=== PATIENT | female | born 1940 ===

== ENCOUNTER 2018-05-17 15:42 | Inpatient (IN) | payer MEDICAID, OTHER ==
[2018-05-17] MEDS ORDERED: Sodium Chloride 0.9% 500 ML IV STA (16:05)
--- NOTE | 2018-05-17 16:14 | ED PDOC ---
HPI: Chest Pain Time Seen by Provider: 05/17/18 15:54 Chief Complaint (Nursing): Chest Pain Chief Complaint (Provider): Chest Pain History Per: Patient, Family History/Exam Limitations: no limitations Onset/Duration Of Symptoms: Days (x2) Additional Complaint(s): Patient is a 78 y/o female with history of HTN, diabetes, and Hypercholesterolemia, who presents to the ED with chest pain, onset x2 days ago. Patient's family states that the pain started on Thursday, x2 days ago, and it resolved on its own. The pain started again yesterday after she ate food at around 18:00. Patient's family also reports that this pain is similar to symptoms that she had x3 months ago. Patient reports she had associated nausea , vomiting, and diarrhea during Thursday's episode but not yesterday or today. Patient also complains of back pain that is sometimes associated with the chest pain and sometimes independent. Patient denies any abdominal pain, leg pain, or shortness of breath. She has no other complaints at this time. Past Medical History Reviewed: Historical Data, Nursing Documentation, Vital Signs Vital Signs: Last Vital Signs Temp 98.4 F 05/17/18 15:59 Pulse 105 H 05/17/18 15:59 Resp 17 05/17/18 15:59 BP 150/72 05/17/18 15:59 Pulse Ox 95 05/17/18 16:21 - Medical History PMH: Diabetes, HTN, Hypercholesterolemia Other PMH: "pre-Heart Attack" - Surgical History Other surgeries: left knee surgery - Family History Family History: States: Unknown Family Hx - Allergies Allergies/Adverse Reactions: Allergies Allergy/AdvReac Type Severity Reaction Status Date / Time No Known Allergies Allergy Verified 05/17/18 15:53 Review of Systems ROS Statement: Except As Marked, All Systems Reviewed And Found Negative Constitutional: Negative for: Fever Cardiovascular: Positive for: Chest Pain Respiratory: Negative for: Shortness of Breath Gastrointestinal: Positive for: Nausea (x2 days ago, not today), Vomiting (x2 days ago, not today), Diarrhea (x2 days ago, not today). Negative for: Abdominal Pain Musculoskeletal: Negative for: Leg Pain Physical Exam - Reviewed Nursing Documentation Reviewed: Yes Vital Signs Reviewed: Yes - Physical Exam Appears: Positive for: Uncomfortable Head Exam: Positive for: ATRAUMATIC, NORMOCEPHALIC Skin: Positive for: Normal Color, Warm, Dry Eye Exam: Positive for: EOMI, Normal appearance, PERRL Neck: Positive for: Normal, Painless ROM, Supple Cardiovascular/Chest: Positive for: Regular Rate, Rhythm. Negative for: Murmur Respiratory: Positive for: Normal Breath Sounds. Negative for: Respiratory Distress Gastrointestinal/Abdominal: Positive for: Normal Exam, Soft. Negative for: Tenderness, Distended Back: Positive for: Normal Inspection. Negative for: L CVA Tenderness, R CVA Tenderness Extremity: Negative for: Normal ROM (limited ROM in left leg due to surgery on left knee), Tenderness, Pedal Edema, Deformity Neurologic/Psych: Positive for: Alert, Oriented. Negative for: Motor/Sensory Deficits - Laboratory Results Result Diagrams: 05/17/18 16:28 Interpretation Of Abn Labs: 4.65 trop; 2069 probnp - ECG ECG: Positive for: Interpreted By Me, Viewed By Me ECG Rhythm: Positive for: Sinus Rhythm, Nonspecific Changes (no old) O2 Sat by Pulse Oximetry: 95 (RA) Pulse Ox Interpretation: Normal - Radiology X-Ray: Interpreted by Me, Viewed By Me X-Ray Interpretation: No Acute Disease - Progress ED Course And Treament: 1745: Spoke with interventional cardiology Dr. Gonzales considering the ekg and trop elevation. States not a STEMI. Treat as nstemi. Dr. Francesco martines who is contact clerk cards. 175: Spoke with Dr. Maya. Will consult. Made aware of all findings. No heparin at this time as pt. pain free and comfortable. Will order echo for tomorrow. He reviewed ekg. - Critical Care Total Time (In Min): 30 Documented Critical Care: Time excludes all time spent performint seperately billable procedures Medical Decision Making Medical Decision Making: Time: 15:55 Impression: Chest pain Initial Plan: --EKG --BNP --CMP --Troponin I --CBC w/ diff --PTT --Prothrombin time --CXR --Pepcid Scribe Attestation: Documented by Nixon Gongora acting as a scribe for Austin Stanton MD. MD Duran Attestation: All medical record entries made by the Scribe were at my direction and personally dictated by me. I have reviewed the chart and agree that the record accurately reflects my personal performance of the history, physical exam, medical decision making, and the department course for this patient. I have also personally directed, reviewed, and agree with the discharge instructions and disposition. Disposition - Clinical Impression Clinical Impression: Chest pain, NSTEMI (non-ST elevated myocardial infarction) - Patient ED Disposition Is Patient to be Admitted: Yes Counseled Patient/Family Regarding: Studies Performed, Diagnosis - Disposition Disposition Time: 17:51 Condition: FAIR - Pt Status Changed To: Hospital Disposition Of: Inpatient - Admit Certification Admit to Inpatient:: After my assessment, the patient will require hospitalization for at least two midnights. This is because of the severity of symptoms shown, intensity of services needed, and/or the medical risk in this patient being treated as an outpatient. - POA Present On Arrival: None Core Measure Indicators: Chest Pain
[2018-05-17 16:31] LABS: BASO # 0.1 K/uL (0.0-0.2); BASO % 0.7 % (0.0-2.0); EOS # 0.1 K/uL (0.0-0.7); EOS % 0.7 % (0.0-4.0); LYMPH # 2.6 K/uL (1.0-4.3); LYMPH % 26.2 % (20.0-40.0); MEAN CORPUSCULAR HGB CONC 34.9 g/dL (33.0-37.0); MEAN PLATELET VOLUME 10.1 fl (7.2-11.7); MONO # 0.4 K/uL (0.0-0.8); MONO % 3.7 % (0.0-10.0); NEUT # 6.7 K/uL (1.8-7.0); NEUT % 68.7 % (50.0-75.0); RBC 4.85 Mil/uL (3.80-5.20); RED CELL DISTRIBUTION WIDTH 14.7 % (11.5-14.5); WHITE BLOOD COUNT 9.8 K/uL (4.8-10.8)
[2018-05-17 16:45] LABS: PROTHROMBIN TIME 11.4 Seconds (9.8-13.1)
[2018-05-17 16:48] LABS: PARTIAL THROMBOPLASTIN TIME 29.7 Seconds (25.6-37.1)
[2018-05-17 17:30] LABS: ALB/GLOB RATIO 1.3 (1.0-2.1); ALBUMIN 4.2 g/dL (3.5-5.0); CALCIUM 9.1 mg/dL (8.4-10.2); TROPONIN I 4.65 ng/mL (0.00-0.120)
--- NOTE | 2018-05-17 18:54 | CP.PCM.HP ---
History of Present Illness - History of Present Illness History of Present Illness: 78 yo female with history of DM2, HLD and HTN brought by family because of left sided chest pain which started as left back pain about 6 hrs ago then radiating and getting localized in the left chest. She claimed she had the same episode 2 days ago which started at the back then getting localized in the left chest and shoulder. She denied SOB, nausea or vomiting. Patient had a cardiac event in [place] 3 yrs ago and was told that she had a mild heart attack. She was hospitalized for a week but no intervention was done. Present on Admission - Present on Admission Any Indicators Present on Admission: No History of DVT/PE: No History of Uncontrolled Diabetes: No Urinary Catheter: No Decubitus Ulcer Present: No Review of Systems - Review of Systems All systems: reviewed and no additional remarkable complaints except (aside from those mentioned above, 12 point system review were negative by me) Past Patient History - Tetanus Immunizations Tetanus Immunization: Unknown - Past Medical History & Family History Past Medical History?: Yes - Past Social History Smoking Status: Never Smoked Chewing Tobacco Use: No Cigar Use: No Alcohol: None Drugs: Denies Home Situation {Lives}: With Family - CARDIAC Hx Cardiac Disorders: Yes Hx Heart Attack: Yes (heart attack in [place] 3 yrs ago) Hx Hypercholesterolemia: Yes Hx Hypertension: Yes - PULMONARY Hx Respiratory Disorders: No - NEUROLOGICAL Hx Neurological Disorder: No - HEENT Hx HEENT Problems: No - RENAL Hx Chronic Kidney Disease: No - ENDOCRINE/METABOLIC Hx Diabetes Mellitus Type 2: Yes - HEMATOLOGICAL/ONCOLOGICAL Hx Blood Disorders: No - INTEGUMENTARY Hx Dermatological Problems: Yes Other/Comment: vitiligo - MUSCULOSKELETAL/RHEUMATOLOGICAL Hx Musculoskeletal Disorders: Yes Hx Degenerative Joint Disease: Yes (left knee) - GASTROINTESTINAL Hx Gastrointestinal Disorders: No - GENITOURINARY/GYNECOLOGICAL Hx Genitourinary Disorders: No - PSYCHIATRIC Hx Psychophysiologic Disorder: No Hx Substance Use: No - SURGICAL HISTORY Hx Surgeries: Yes Hx Section: Yes Hx Cholecystectomy: Yes Hx Orthopedic Surgery: Yes (left knee) - ANESTHESIA Hx Anesthesia: Yes Hx Anesthesia Reactions: No Meds Allergies/Adverse Reactions: Allergies Allergy/AdvReac Type Severity Reaction Status Date / Time No Known Allergies Allergy Verified 05/17/18 15:53 Physical Exam - Constitutional Appears: No Acute Distress - Head Exam Head Exam: ATRAUMATIC - Eye Exam Eye Exam: absent: Scleral icterus - ENT Exam ENT Exam: Mucous Membranes Moist - Neck Exam Neck exam: Negative for: Meningismus - Respiratory Exam Respiratory Exam: absent: Rales, Rhonchi, Wheezes, Respiratory Distress - Cardiovascular Exam Cardiovascular Exam: REGULAR RHYTHM, +S1, +S2 - GI/Abdominal Exam GI & Abdominal Exam: Soft. absent: Tenderness - Rectal Exam Rectal Exam: Deferred - Extremities Exam Extremities exam: Negative for: calf tenderness, pedal edema - Back Exam Back exam: absent: tenderness - Neurological Exam Neurological exam: Alert, Oriented x3 - Psychiatric Exam Psychiatric exam: Normal Affect - Skin Skin Exam: Dry, Intact Additional comments: depigmentation on forehead and neck and shoulders Results - Vital Signs Recent Vital Signs: Last Vital Signs Temp 98.4 F 05/17/18 15:59 Pulse 105 H 05/17/18 15:59 Resp 17 05/17/18 15:59 BP 150/72 05/17/18 15:59 Pulse Ox 95 05/17/18 17:59 - Labs Result Diagrams: 05/17/18 16:28 05/17/18 16:28 Labs: Laboratory Results - last 24 hr 05/17/18 05/17/18 05/17/18 16:28 16:28 16:28 WBC 9.8 RBC 4.85 Hgb 14.0 Hct 40.3 MCV 83.0 MCH 29.0 MCHC 34.9 RDW 14.7 H Plt Count 214 MPV 10.1 Neut % (Auto) 68.7 Lymph % (Auto) 26.2 Wilkes % (Auto) 3.7 Eos % (Auto) 0.7 Baso % (Auto) 0.7 Neut # (Auto) 6.7 Lymph # (Auto) 2.6 Wilkes # (Auto) 0.4 Eos # (Auto) 0.1 Baso # (Auto) 0.1 PT 11.4 INR 1.0 APTT 29.7 Sodium 130 L Potassium 4.4 Chloride 98 Carbon Dioxide 22 Anion Gap 14 BUN 15 Creatinine 1.1 Est GFR ( Amer) 58 Est GFR (Non-Af Amer) 48 Random Glucose 404 H* Calcium 9.1 Total Bilirubin 0.4 AST 62 H ALT 40 Alkaline Phosphatase 74 Troponin I 4.6500 H* NT-Pro-B Natriuret Pep 2070 H Total Protein 7.4 Albumin 4.2 Globulin 3.2 Albumin/Globulin Ratio 1.3 Lipase 63 Assessment & Plan - Assessment and Plan (Free Text) Assessment: 78 yo female with history of DM2, HLD and HTN brought by family because of left sided chest pain which started as left back pain about 6 hrs ago then radiating and getting localized in the left chest. She claimed she had the same episode 2 days ago which started at the back then getting localized in the left chest and shoulder. 1. NSTEMI serial Troponin NTG SL prn for chest pain Morphine 2mg IV q 4hrs prn for chest not relieved with above ECHO cardiology consult with Dr Maya called by ER Lopressor 25mg PO q 12hrs Atorvastatin 40mg PO daily 2. DM2 accuchek ACHS with low Lispro coverage diabetic diet HgA1C, BMP in am 3. HTN Lopressor 25mg PO q 12hrs 4. DVT prophylaxis Lovenox 40mg SC daily
[2018-05-17] MEDS: Insulin Lispro (humaLOG) 100 Units/ml Inj SC SCH (22:30)
[2018-05-18] MEDS: Enoxaparin 80 mg Syringe SC SCH ×3 (00:05→23:13)
[2018-05-18 05:36] LABS: BASO # 0.1 K/uL (0.0-0.2); BASO % 0.8 % (0.0-2.0); EOS # 0.2 K/uL (0.0-0.7); EOS % 1.8 % (0.0-4.0); HEMOGLOBIN 12.9 g/dL (12.0-16.0); LYMPH # 3.1 K/uL (1.0-4.3); LYMPH % 31.5 % (20.0-40.0); MEAN CELL VOLUME 83.7 fl (81.0-99.0); MEAN CORPUSCULAR HEMOGLOBIN 28.7 pg (27.0-31.0); MEAN CORPUSCULAR HGB CONC 34.3 g/dL (33.0-37.0); MEAN PLATELET VOLUME 9.7 fl (7.2-11.7); MONO # 0.6 K/uL (0.0-0.8); MONO % 5.7 % (0.0-10.0); NEUT # 5.9 K/uL (1.8-7.0); NEUT % 60.2 % (50.0-75.0); RBC 4.51 Mil/uL (3.80-5.20); RED CELL DISTRIBUTION WIDTH 14.5 % (11.5-14.5); WHITE BLOOD COUNT 9.8 K/uL (4.8-10.8)
[2018-05-18 05:47] LABS: BLOOD UREA NITROGEN 14 mg/dl (7-17); CALCIUM 8.9 mg/dL (8.4-10.2); GFR NON-AFRICAN AMERICAN 53; HDL CHOLESTEROL 25 MG/DL (30-70)
[2018-05-18 05:58] LABS: LDL CHOLESTEROL 61 mg/dL (0-129)
[2018-05-18] MEDS ORDERED: Pneumococcal 23-Valent Vaccine IM ONE (06:30)
--- NOTE | 2018-05-18 07:55 | CP.PCM.PN ---
<Aram Ortiz - Last Filed: 05/18/18 10:17> Subjective - Date & Time of Evaluation Date of Evaluation: 05/18/18 Time of Evaluation: 09:00 - Subjective Subjective: Pt is a 78 yo F brought in by her family last night due to a left sided chest pain which started in her back then radiated to her left chest after she ate a meal at 6pm. Patient has had similar episodes one on Thursday of which she also had nausea, vomiting and diarrhea the episode resolved on its own and another 3 months prior. Patient was hospitalized 3 years ago in the [facility] and was told she experienced a minor heart attack however no intervention was performed at that time. Today patient states she is feeling well this morning, denies having any chest pain, SOB, Nausea, Vomiting, or Diarrhea. Patient states she is having minor constipation. Daughter is at bedside, patient heard of hearing. Hx: HTN, DM, HLD, Vitiligo Surg Hx: Left knee Objective - Vital Signs/Intake and Output Vital Signs (last 24 hours): Temp Pulse Resp BP Pulse Ox 98.1 F 65 18 154/77 H 96 05/18/18 07:58 05/18/18 07:58 05/18/18 07:58 05/18/18 07:58 05/18/18 07:58 - Medications Medications: Current Medications Aspirin (Aspirin) 325 mg PO DAILY [facility] Atorvastatin Calcium (Lipitor) 40 mg PO HS [facility] Last Admin: 05/17/18 22:29 Dose: 40 mg Clopidogrel Bisulfate (Plavix) 75 mg PO DAILY [facility] Docusate Sodium (Colace) 100 mg PO BID PRN PRN Reason: Constipation Enoxaparin Sodium (Lovenox) 70 mg SC Q12 [facility] PRN Reason: Protocol Last Admin: 05/18/18 00:05 Dose: 70 mg Insulin Human Lispro (Humalog) 0 units SC ACHS [facility] PRN Reason: Protocol Last Admin: 05/18/18 08:18 Dose: Not Given Metoprolol Tartrate (Lopressor) 25 mg PO Q8 [facility] Last Admin: 05/18/18 03:05 Dose: 25 mg Morphine Sulfate (Morphine) 2 mg IVP Q6 PRN PRN Reason: chest pain Nitroglycerin (Nitrostat Sl Tab) 0.4 mg SL Q5M PRN PRN Reason: chest pain Pantoprazole Sodium (Protonix Ec Tab) 40 mg PO DAILY [facility] - Labs Labs: 05/18/18 04:45 05/18/18 04:45 PT 11.4 Seconds (9.8-13.1) 05/17/18 16:28 INR 1.0 05/17/18 16:28 APTT 29.7 Seconds (25.6-37.1) 05/17/18 16:28 - Constitutional Appears: Well, Non-toxic, No Acute Distress - Head Exam Head Exam: ATRAUMATIC, NORMAL INSPECTION Additional comments: Vitiligo - Eye Exam Eye Exam: EOMI, Normal appearance, PERRL - ENT Exam ENT Exam: Mucous Membranes Moist - Neck Exam Neck Exam: Full ROM, Normal Inspection - Respiratory Exam Respiratory Exam: Clear to Ausculation Bilateral, NORMAL BREATHING PATTERN - Cardiovascular Exam Cardiovascular Exam: REGULAR RHYTHM, RRR, +S1, +S2 - GI/Abdominal Exam GI & Abdominal Exam: Soft, Normal Bowel Sounds - Extremities Exam Extremities Exam: Normal Inspection - Neurological Exam Neurological Exam: Alert, Awake, Oriented x3 - Skin Additional comments: Vitiligo noted on face and shoulders Assessment and Plan (1) NSTEMI (non-ST elevated myocardial infarction) Assessment & Plan: -Serial Troponins- 4.65, now 12 -Pro BNP 2070 -Active EKG changes-Echo today -Chest pain PRN Nitro, Morphine - Plavix 300mg, Lovenox 70mg -Interventional cardiology consulted- Dr. Maya Status: Acute (2) HTN (hypertension) Assessment & Plan: BP 154/77, HR 67- continue Lopressor 25mg Q 8h Status: Acute (3) Diabetes mellitus Assessment & Plan: - Accucheck QHS- 143 - Diabetic diet -Lispro - Continue to monitor BMP Status: Acute (4) Dyslipidemia Assessment & Plan: - Atorvastatin 40mg PO daily Status: Acute (5) DVT prophylaxis Assessment & Plan: -Lovenox Status: Acute <Didi Evans - Last Filed: 05/18/18 10:49> Objective - Vital Signs/Intake and Output Vital Signs (last 24 hours): Temp Pulse Resp BP Pulse Ox 98.2 F 67 18 166/90 H 96 05/18/18 04:53 05/18/18 04:53 05/18/18 04:53 05/18/18 04:53 05/18/18 04:53 - Medications Medications: Current Medications Aspirin (Aspirin) 325 mg PO DAILY [facility] Atorvastatin Calcium (Lipitor) 40 mg PO HS [facility] Last Admin: 05/17/18 22:29 Dose: 40 mg Clopidogrel Bisulfate (Plavix) 75 mg PO DAILY [facility] Docusate Sodium (Colace) 100 mg PO BID PRN PRN Reason: Constipation Enoxaparin Sodium (Lovenox) 70 mg SC Q12 [facility] PRN Reason: Protocol Last Admin: 05/18/18 00:05 Dose: 70 mg Insulin Human Lispro (Humalog) 0 units SC ACHS [facility] PRN Reason: Protocol Last Admin: 05/17/18 22:30 Dose: Not Given Metoprolol Tartrate (Lopressor) 25 mg PO Q8 [facility] Last Admin: 05/18/18 03:05 Dose: 25 mg Morphine Sulfate (Morphine) 2 mg IVP Q6 PRN PRN Reason: chest pain Nitroglycerin (Nitrostat Sl Tab) 0.4 mg SL Q5M PRN PRN Reason: chest pain Pantoprazole Sodium (Protonix Ec Tab) 40 mg PO DAILY [facility] - Labs Labs: 05/18/18 04:45 05/18/18 04:45 PT 11.4 Seconds (9.8-13.1) 05/17/18 16:28 INR 1.0 05/17/18 16:28 APTT 29.7 Seconds (25.6-37.1) 05/17/18 16:28 <Ana Hayes - Last Filed: 05/18/18 15:45> Objective - Vital Signs/Intake and Output Vital Signs (last 24 hours): Temp Pulse Resp BP Pulse Ox 98 F 68 18 146/70 95 05/18/18 13:00 05/18/18 13:00 05/18/18 13:00 05/18/18 13:00 05/18/18 13:00 - Medications Medications: Current Medications Aspirin (Aspirin) 325 mg PO DAILY [facility] Last Admin: 05/18/18 10:13 Dose: 325 mg Atorvastatin Calcium (Lipitor) 40 mg PO HS [facility] Last Admin: 05/17/18 22:29 Dose: 40 mg Clopidogrel Bisulfate (Plavix) 75 mg PO DAILY [facility] Last Admin: 05/18/18 10:15 Dose: Not Given Docusate Sodium (Colace) 100 mg PO BID PRN PRN Reason: Constipation Enoxaparin Sodium (Lovenox) 70 mg SC Q12 [facility] PRN Reason: Protocol Last Admin: 05/18/18 10:15 Dose: 70 mg Insulin Human Lispro (Humalog) 0 units SC ACHS [facility] PRN Reason: Protocol Last Admin: 05/18/18 12:06 Dose: 1 unit Metoprolol Tartrate (Lopressor) 25 mg PO Q8 [facility] Last Admin: 05/18/18 10:14 Dose: 25 mg Morphine Sulfate (Morphine) 2 mg IVP Q6 PRN PRN Reason: chest pain Nitroglycerin (Nitrostat Sl Tab) 0.4 mg SL Q5M PRN PRN Reason: chest pain Pantoprazole Sodium (Protonix Ec Tab) 40 mg PO DAILY [facility] Last Admin: 05/18/18 10:15 Dose: 40 mg - Labs Labs: 05/18/18 04:45 05/18/18 04:45 PT 11.4 Seconds (9.8-13.1) 05/17/18 16:28 INR 1.0 05/17/18 16:28 APTT 29.7 Seconds (25.6-37.1) 05/17/18 16:28 Attending/Attestation - Attestation I have personally seen and examined this patient.: Yes I have fully participated in the care of the patient.: Yes I have reviewed all pertinent clinical information, including history, physical exam and plan: Yes Notes (Text): 05/18/18 15:45 Seen, examined, and discussed with resident. Agree with findings and plan as above.
--- NOTE | 2018-05-18 08:11 | RAD ---
Date of service: 05/17/2018 HISTORY: dyspnea COMPARISON: No prior. FINDINGS: LUNGS: No active pulmonary disease. PLEURA: No significant pleural effusion identified, no pneumothorax apparent. CARDIOVASCULAR: Normal. OSSEOUS STRUCTURES: No significant abnormalities. VISUALIZED UPPER ABDOMEN: Surgical clips are seen at the right upper quadrant abdomen. OTHER FINDINGS: None. IMPRESSION: No definite acute cardiopulmonary disease appreciable.
[2018-05-18] MEDS: Insulin Lispro (humaLOG) 100 Units/ml Inj SC SCH ×4 (08:18→23:11)
[2018-05-18] MEDS ORDERED: Enoxaparin 40 mg Syringe SC SCH (09:00)
--- NOTE | 2018-05-18 09:05 | CARD ---
APPROVED REPORT Date of service: 05/17/2018 EKG Measurement Heart [id number] MD [id number] <Conclusion> Normal sinus rhythm Possible Left atrial enlargement Septal infarct, age undetermined ST & T wave abnormality, consider lateral ischemia Abnormal ECG
--- NOTE | 2018-05-18 09:06 | CARD ---
APPROVED REPORT Date of service: 05/17/2018 EKG Measurement Heart [id number] [place] 156P50 [id number] <Conclusion> Sinus tachycardia Cannot rule out Anterior infarct, age undetermined ST & T wave abnormality, consider lateral ischemia Abnormal ECG
--- NOTE | 2018-05-18 09:41 | CARD ---
APPROVED REPORT Date of service: 05/18/2018 EKG Measurement Heart [id number] 160P57 [id number] <Conclusion> Normal sinus rhythm Septal infarct, age undetermined Abnormal ECG
[2018-05-18] MEDS: Pantoprazole 40 mg EC Tab PO SCH (10:15)
--- NOTE | 2018-05-18 14:46 | CARD ---
APPROVED REPORT Date of service: 05/18/2018 EXAM: Two-dimensional and M-mode echocardiogram with Doppler and color Doppler. Other Information Quality : GoodRhythm : NSR INDICATION Non STEMI 2D DIMENSIONS IVSd0.90 (0.7-1.1cm)LVDd4.95 (3.9-5.9cm) LVOT Diameter1.80 (1.8-2.4cm)PWd0.76 (0.7-1.1cm) IVSs0.99 (0.8-1.2cm)LVDs3.74 (2.5-4.0cm) FS (%) 24.5 %PWs1.09 (0.8-1.2cm) M-Mode DIMENSIONS Left Atrium (MM)2.99 (2.5-4.0cm)IVSd0.95 (0.7-1.1cm) Aortic Root3.19 (2.2-3.7cm)LVDd5.64 (4.0-5.6cm) Aortic Cusp Exc.2.06 (1.5-2.0cm)PWd1.08 (0.7-1.1cm) IVSs0.88 cmFS (%) 27 % LVDs4.09 (2.0-3.8cm)PWs1.47 cm Aortic Valve AoV Peak Llbdslcc535.5cm/sAoV VTI21.6cmAO Peak GR.4mmHg LVOT Peak Jseiluip04.0cm/sLVOT VTI24.91cmAO Mean GR.2mmHg Mitral Valve MV E Zmpdtmpy62.4cm/sMV DECEL [id number] A Lxkosncq71.3cm/s MV HLH50goL/A ratio0.6MVA (PHT)3.24cm2 TDI Lateral E' Peak V4.97cm/sMedial E' Peak V4.89cm/sE/Lateral E'11.8 E/Medial E'11.9 Pulmonary Valve PV Peak Pvqxdmsv21.6cm/s LEFT VENTRICLE The left ventricle is normal size. There is normal left ventricular wall thickness. The left ventricular ejection fraction is within the normal range. The Ejection Fraction is 60-65%. No regional wall motion abnormalities noted.. Transmitral Doppler flow pattern is Grade I-abnormal relaxation pattern. No left ventricle thrombus noted on this study. There is no ventricular septal defect visualized. There is no mass noted in the left ventricle. RIGHT VENTRICLE The right ventricle is normal size. There is normal right ventricular wall thickness. The right ventricular systolic function is normal. ATRIA The left atrium size is normal. The right atrium size is normal. There is a small secundum type atrial septal defect. AORTIC VALVE The aortic valve is normal in structure. No aortic regurgitation is present. There is no aortic valvular stenosis. MITRAL VALVE The mitral valve is normal in structure. There is no mitral valve stenosis. There is no mitral valve regurgitation noted. TRICUSPID VALVE The tricuspid valve is normal in structure. There is no tricuspid valve regurgitation noted. PULMONIC VALVE The pulmonary valve is normal in structure. There is no pulmonic valvular regurgitation. GREAT VESSELS The aortic root is normal in size. The ascending aorta is normal in size. The pulmonary artery is normal. The IVC is normal in size and collapses >50% with inspiration. PERICARDIAL EFFUSION There is no pericardial effusion. <Conclusion> Normal LV systolic function with doppler hemodynamics consistent with abnormal relaxation Small ASD The Ejection Fraction is 60-65%.
--- NOTE | 2018-05-18 16:48 | CP.PCM.CON ---
History of Present Illness - History of Present Illness History of Present Illness: 78 yo female with history of DM2, HLD and HTN brought by family because of left sided chest pain which started as left back pain radiating the left chest. this was her second event in 3 days. She denied SOB, nausea or vomiting. Patient had a cardiac event in [place] 3 yrs ago and was told that she had a mild heart attack. She was hospitalized for a week but no intervention was done. upon admission pts troponins were positive. echo reveals nml ef. Review of Systems - Review of Systems Systems not reviewed;Unavailable: Language Barrier Past Patient History - Tetanus Immunizations Tetanus Immunization: Unknown - Past Medical History & Family History Past Medical History?: Yes - Past Social History Smoking Status: Never Smoked - CARDIAC Hx Cardiac Disorders: Yes Hx Hypercholesterolemia: Yes Hx Hypertension: Yes - PULMONARY Hx Respiratory Disorders: No - NEUROLOGICAL Hx Neurological Disorder: No - HEENT Hx HEENT Problems: No - RENAL Hx Chronic Kidney Disease: No - ENDOCRINE/METABOLIC Hx Endocrine Disorders: Yes Hx Diabetes Mellitus Type 2: Yes - HEMATOLOGICAL/ONCOLOGICAL Hx Blood Disorders: No - INTEGUMENTARY Hx Dermatological Problems: Yes Other/Comment: vitiligo - MUSCULOSKELETAL/RHEUMATOLOGICAL Hx Musculoskeletal Disorders: No Hx Falls: No - GASTROINTESTINAL Hx Gastrointestinal Disorders: No - GENITOURINARY/GYNECOLOGICAL Hx Genitourinary Disorders: No - PSYCHIATRIC Hx Psychophysiologic Disorder: No Hx Substance Use: No - SURGICAL HISTORY Hx Surgeries: Yes Hx Section: Yes Hx Cholecystectomy: Yes Hx Orthopedic Surgery: Yes (b/l knee) - ANESTHESIA Hx Anesthesia: Yes Hx Anesthesia Reactions: No Meds Allergies/Adverse Reactions: Allergies Allergy/AdvReac Type Severity Reaction Status Date / Time No Known Allergies Allergy Verified 05/17/18 15:53 - Medications Medications: Current Medications Aspirin (Aspirin) 325 mg PO DAILY [facility] Last Admin: 05/18/18 10:13 Dose: 325 mg Atorvastatin Calcium (Lipitor) 40 mg PO HS [facility] Last Admin: 05/17/18 22:29 Dose: 40 mg Clopidogrel Bisulfate (Plavix) 75 mg PO DAILY [facility] Last Admin: 05/18/18 10:15 Dose: Not Given Docusate Sodium (Colace) 100 mg PO BID PRN PRN Reason: Constipation Enoxaparin Sodium (Lovenox) 70 mg SC Q12 [facility] PRN Reason: Protocol Last Admin: 05/18/18 10:15 Dose: 70 mg Insulin Human Lispro (Humalog) 0 units SC ACHS [facility] PRN Reason: Protocol Last Admin: 05/18/18 12:06 Dose: 1 unit Metoprolol Tartrate (Lopressor) 25 mg PO Q8 [facility] Last Admin: 05/18/18 10:14 Dose: 25 mg Morphine Sulfate (Morphine) 2 mg IVP Q6 PRN PRN Reason: chest pain Nitroglycerin (Nitrostat Sl Tab) 0.4 mg SL Q5M PRN PRN Reason: chest pain Pantoprazole Sodium (Protonix Ec Tab) 40 mg PO DAILY [facility] Last Admin: 05/18/18 10:15 Dose: 40 mg Physical Exam - Constitutional Appears: Well - Head Exam Head Exam: ATRAUMATIC, NORMAL INSPECTION, NORMOCEPHALIC - Eye Exam Eye Exam: EOMI, Normal appearance, PERRL Pupil Exam: NORMAL ACCOMODATION, PERRL - ENT Exam ENT Exam: Mucous Membranes Moist, Normal Exam - Neck Exam Neck exam: Positive for: Normal Inspection - Respiratory Exam Respiratory Exam: Clear to Auscultation Bilateral, NORMAL BREATHING PATTERN. absent: Accessory Muscle Use, Chest Wall Tenderness, Decreased Breath Sounds, Prolonged Expiratory Phase, Rales, Rhonchi, Wheezes, Respiratory Distress, Stridor - Cardiovascular Exam Cardiovascular Exam: REGULAR RHYTHM, +S1, +S2, Systolic Murmur - GI/Abdominal Exam GI & Abdominal Exam: Normal Bowel Sounds, Soft. absent: Bruit, Diminished Bowel Sounds, Distended, Firm, Guarding, Hernia, Hyperactive Bowel Sounds, Hypoactive Bowel Sounds, Mass, Organomegaly, Pulsatile Mass, Rebound, Rigid, Tenderness - Rectal Exam Rectal Exam: Deferred - Extremities Exam Extremities exam: Positive for: normal inspection - Back Exam Back exam: NORMAL INSPECTION - Neurological Exam Neurological exam: Alert, CN II-XII Intact, Normal Gait, Oriented x3, Reflexes Normal - Psychiatric Exam Psychiatric exam: Normal Affect, Normal Mood - Skin Skin Exam: Dry, Intact, Normal Color, Warm Results - Vital Signs Recent Vital Signs: Last Vital Signs Temp 98.1 F 05/18/18 16:07 Pulse 69 05/18/18 16:07 Resp 18 05/18/18 16:07 BP 156/74 H 05/18/18 16:07 Pulse Ox 98 05/18/18 16:07 - Labs Result Diagrams: 05/18/18 04:45 05/18/18 04:45 Labs: Laboratory Results - last 24 hr 05/17/18 05/17/18 05/17/18 16:28 16:28 16:28 WBC 9.8 RBC 4.85 Hgb 14.0 Hct 40.3 MCV 83.0 MCH 29.0 MCHC 34.9 RDW 14.7 H Plt Count 214 MPV 10.1 Neut % (Auto) 68.7 Lymph % (Auto) 26.2 Borden % (Auto) 3.7 Eos % (Auto) 0.7 Baso % (Auto) 0.7 Neut # (Auto) 6.7 Lymph # (Auto) 2.6 Borden # (Auto) 0.4 Eos # (Auto) 0.1 Baso # (Auto) 0.1 APTT 29.7 Sodium 130 L Potassium 4.4 Chloride 98 Carbon Dioxide 22 Anion Gap 14 BUN 15 Creatinine 1.1 Est GFR ( Amer) 58 Est GFR (Non-Af Amer) 48 POC Glucose (mg/dL) Random Glucose 404 H* Hemoglobin A1c Calcium 9.1 Total Bilirubin 0.4 AST 62 H ALT 40 Alkaline Phosphatase 74 Troponin I 4.6500 H* NT-Pro-B Natriuret Pep 2070 H Total Protein 7.4 Albumin 4.2 Globulin 3.2 Albumin/Globulin Ratio 1.3 Triglycerides Cholesterol LDL Cholesterol Direct HDL Cholesterol Lipase 63 TSH 3rd Generation 05/17/18 05/17/18 05/18/18 19:59 21:37 00:50 WBC RBC Hgb Hct MCV MCH MCHC RDW Plt Count MPV Neut % (Auto) Lymph % (Auto) Borden % (Auto) Eos % (Auto) Baso % (Auto) Neut # (Auto) Lymph # (Auto) Borden # (Auto) Eos # (Auto) Baso # (Auto) APTT Sodium Potassium Chloride Carbon Dioxide Anion Gap BUN Creatinine Est GFR ( Amer) Est GFR (Non-Af Amer) POC Glucose (mg/dL) 256 H 213 H Random Glucose Hemoglobin A1c Calcium Total Bilirubin AST ALT Alkaline Phosphatase Troponin I 12.0000 H* NT-Pro-B Natriuret Pep Total Protein Albumin Globulin Albumin/Globulin Ratio Triglycerides Cholesterol LDL Cholesterol Direct HDL Cholesterol Lipase TSH 3rd Generation 05/18/18 05/18/18 05/18/18 04:45 04:45 04:45 WBC 9.8 RBC 4.51 Hgb 12.9 Hct 37.7 MCV 83.7 MCH 28.7 MCHC 34.3 RDW 14.5 Plt Count 205 MPV 9.7 Neut % (Auto) 60.2 Lymph % (Auto) 31.5 Borden % (Auto) 5.7 Eos % (Auto) 1.8 Baso % (Auto) 0.8 Neut # (Auto) 5.9 Lymph # (Auto) 3.1 Borden # (Auto) 0.6 Eos # (Auto) 0.2 Baso # (Auto) 0.1 APTT Sodium 139 Potassium 4.1 Chloride 108 H Carbon Dioxide 23 Anion Gap 12 BUN 14 Creatinine 1.0 Est GFR ( Amer) > 60 Est GFR (Non-Af Amer) 53 POC Glucose (mg/dL) Random Glucose 143 H Hemoglobin A1c 10.6 H Calcium 8.9 Total Bilirubin AST ALT Alkaline Phosphatase Troponin I NT-Pro-B Natriuret Pep Total Protein Albumin Globulin Albumin/Globulin Ratio Triglycerides 145 Cholesterol 120 LDL Cholesterol Direct 61 HDL Cholesterol 25 L Lipase TSH 3rd Generation 4.39 05/18/18 05/18/18 05/18/18 05:28 10:07 11:00 WBC RBC Hgb Hct MCV MCH MCHC RDW Plt Count MPV Neut % (Auto) Lymph % (Auto) Borden % (Auto) Eos % (Auto) Baso % (Auto) Neut # (Auto) Lymph # (Auto) Borden # (Auto) Eos # (Auto) Baso # (Auto) APTT Sodium Potassium Chloride Carbon Dioxide Anion Gap BUN Creatinine Est GFR ( Amer) Est GFR (Non-Af Amer) POC Glucose (mg/dL) 130 H 188 H Random Glucose Hemoglobin A1c Calcium Total Bilirubin AST ALT Alkaline Phosphatase Troponin I 9.6500 H* NT-Pro-B Natriuret Pep Total Protein Albumin Globulin Albumin/Globulin Ratio Triglycerides Cholesterol LDL Cholesterol Direct HDL Cholesterol Lipase TSH 3rd Generation Assessment & Plan (1) Diabetes mellitus Status: Acute (2) Dyslipidemia Status: Acute (3) HTN (hypertension) Status: Acute (4) NSTEMI (non-ST elevated myocardial infarction) Status: Acute - Assessment and Plan (Free Text) Plan: last night pt was placed on full anticoag. bb's increased. currently no painf. cath tomorrow at [facility]. scheduled at 3pm.
--- NOTE | 2018-05-19 09:06 | CP.PCM.PN ---
<CristinaDidi - Last Filed: 05/19/18 10:02> Subjective - Date & Time of Evaluation Date of Evaluation: 05/19/18 Time of Evaluation: 09:16 - Subjective Subjective: Cyra: [id number] Pt seen at bedside this morning accompanied by daughter, hard of hearing. Pt states she is feeling well, slept well and denies any chest pain overnight. Pt is having constipation and states the last time she had a bowel movement was Thursday. Pt also is feeling weak and hasn't had the energy to get up out of bed and walk. Denies any SOB, palpations, nausea, vomiting, dysuria or diarrhea. Pt has a good appetite and able to tolerate oral intake, urinating well. Pt is scheduled for a cardiac cath today at 3pm at [facility] with Dr. Maya. Hx: HTN, DM, HLD, Vitiligo, [place] 2015 Surg Hx: Left knee Objective - Vital Signs/Intake and Output Vital Signs (last 24 hours): Temp Pulse Resp BP Pulse Ox 98 F 71 18 137/76 95 05/19/18 08:02 05/19/18 08:02 05/19/18 08:02 05/19/18 08:02 05/19/18 08:02 - Medications Medications: Current Medications Aspirin (Aspirin) 325 mg PO DAILY [facility] Last Admin: 05/18/18 10:13 Dose: 325 mg Atorvastatin Calcium (Lipitor) 40 mg PO HS [facility] Last Admin: 05/18/18 23:12 Dose: 40 mg Clopidogrel Bisulfate (Plavix) 75 mg PO DAILY [facility] Last Admin: 05/18/18 10:15 Dose: Not Given Docusate Sodium (Colace) 100 mg PO BID PRN PRN Reason: Constipation Enoxaparin Sodium (Lovenox) 70 mg SC Q12 [facility] PRN Reason: Protocol Last Admin: 05/18/18 23:13 Dose: 70 mg Insulin Human Lispro (Humalog) 0 units SC ACHS [facility] PRN Reason: Protocol Last Admin: 05/18/18 23:11 Dose: Not Given Metoprolol Tartrate (Lopressor) 25 mg PO Q8 [facility] Last Admin: 05/19/18 01:44 Dose: 25 mg Morphine Sulfate (Morphine) 2 mg IVP Q6 PRN PRN Reason: chest pain Nitroglycerin (Nitrostat Sl Tab) 0.4 mg SL Q5M PRN PRN Reason: chest pain Pantoprazole Sodium (Protonix Ec Tab) 40 mg PO DAILY [facility] Last Admin: 05/18/18 10:15 Dose: 40 mg - Labs Labs: 05/18/18 04:45 05/18/18 04:45 PT 11.4 Seconds (9.8-13.1) 05/17/18 16:28 INR 1.0 05/17/18 16:28 APTT 29.7 Seconds (25.6-37.1) 05/17/18 16:28 - Constitutional Appears: Well, Non-toxic, No Acute Distress - Head Exam Head Exam: ATRAUMATIC, NORMAL INSPECTION Additional comments: Vitiligo across forehead - Eye Exam Eye Exam: EOMI, Normal appearance, PERRL - ENT Exam ENT Exam: Mucous Membranes Moist, Normal Exam - Neck Exam Neck Exam: Full ROM, Normal Inspection - Respiratory Exam Respiratory Exam: Wheezes Additional comments: Inspiratory wheeze heard on ausculation R lower lobe - Cardiovascular Exam Cardiovascular Exam: RRR, +S1, +S2 Additional comments: Systolic murmur - GI/Abdominal Exam GI & Abdominal Exam: Normal Bowel Sounds - Extremities Exam Extremities Exam: Normal Inspection - Neurological Exam Neurological Exam: Alert, Awake, Oriented x3 - Psychiatric Exam Psychiatric exam: Normal Mood - Skin Additional comments: Vitiligo across forehead, chest Assessment and Plan (1) NSTEMI (non-ST elevated myocardial infarction) Assessment & Plan: -Pt is scheduled for cardiac cath today at 3pm at [facility]- Dr. Maya -Serial tropinins were followed 9.65 down from 12 -Echo- normal L syst fxn EF 60-65% with abnml relaxation, small ASD -Pro BNP 2069 -Active EKG ischemic changes- t wave flattening, inversion -Chest pain PRN Nitro, Morphine -Plavix 75 mg Daily, Lovenox 70mg Q12 - HR 71- Lopressor 25mg Q8 Status: Acute (2) HTN (hypertension) Assessment & Plan: BP 137/76, HR 71- continue Lopressor 25mg Q 8h Status: Acute (3) Diabetes mellitus Assessment & Plan: - Accucheck QHS- 166, Glucose 143, HgA1c 10.6 - Diabetic diet -Continue Lispro ACHS - Continue to monitor BMP Status: Acute (4) Dyslipidemia Assessment & Plan: - Atorvastatin 40mg PO daily Status: Acute (5) DVT prophylaxis Assessment & Plan: - Therapeutic Lovenox Status: Acute <Tao [place] - Last Filed: 05/19/18 12:26> Objective - Vital Signs/Intake and Output Vital Signs (last 24 hours): Temp Pulse Resp BP Pulse Ox 98 F 71 18 137/76 95 05/19/18 08:02 05/19/18 08:02 05/19/18 08:02 05/19/18 08:02 05/19/18 08:02 - Medications Medications: Current Medications Aspirin (Aspirin) 325 mg PO DAILY [facility] Last Admin: 05/19/18 10:28 Dose: 325 mg Atorvastatin Calcium (Lipitor) 40 mg PO HS [facility] Last Admin: 05/18/18 23:12 Dose: 40 mg Clopidogrel Bisulfate (Plavix) 75 mg PO DAILY [facility] Last Admin: 05/18/18 10:15 Dose: Not Given Docusate Sodium (Colace) 100 mg PO BID PRN PRN Reason: Constipation Enoxaparin Sodium (Lovenox) 70 mg SC Q12 [facility] PRN Reason: Protocol Last Admin: 05/19/18 10:26 Dose: 70 mg Insulin Human Lispro (Humalog) 0 units SC ACHS [facility] PRN Reason: Protocol Last Admin: 05/19/18 10:26 Dose: Not Given Metoprolol Tartrate (Lopressor) 25 mg PO Q8 [facility] Last Admin: 05/19/18 10:25 Dose: 25 mg Morphine Sulfate (Morphine) 2 mg IVP Q6 PRN PRN Reason: chest pain Nitroglycerin (Nitrostat Sl Tab) 0.4 mg SL Q5M PRN PRN Reason: chest pain Pantoprazole Sodium (Protonix Ec Tab) 40 mg PO DAILY [facility] Last Admin: 05/19/18 10:26 Dose: 40 mg Pregabalin (Lyrica) 75 mg PO BID [facility] Last Admin: 05/19/18 10:42 Dose: 75 mg - Labs Labs: 05/18/18 04:45 05/18/18 04:45 PT 11.4 Seconds (9.8-13.1) 05/17/18 16:28 INR 1.0 05/17/18 16:28 APTT 29.7 Seconds (25.6-37.1) 05/17/18 16:28
[2018-05-19] MEDS: Pantoprazole 40 mg EC Tab PO SCH (10:26)
[2018-05-19] MEDS: Insulin Lispro (humaLOG) 100 Units/ml Inj SC SCH ×2 (10:26→22:15)
[2018-05-19] MEDS: Enoxaparin 80 mg Syringe SC SCH ×2 (10:26→22:10)
--- NOTE | 2018-05-19 13:17 | CP.PCM.PN ---
Subjective - Date & Time of Evaluation Date of Evaluation: 05/19/18 Time of Evaluation: 17:00 - Subjective Subjective: informed consent obtained and cath performed. Objective - Vital Signs/Intake and Output Vital Signs (last 24 hours): Temp Pulse Resp BP Pulse Ox 98.6 F 64 18 123/62 94 L 05/19/18 12:26 05/19/18 12:26 05/19/18 12:26 05/19/18 12:26 05/19/18 12:26 - Medications Medications: Current Medications Aspirin (Aspirin) 325 mg PO DAILY [facility] Last Admin: 05/19/18 10:28 Dose: 325 mg Atorvastatin Calcium (Lipitor) 40 mg PO HS [facility] Last Admin: 05/18/18 23:12 Dose: 40 mg Clopidogrel Bisulfate (Plavix) 75 mg PO DAILY [facility] Last Admin: 05/18/18 10:15 Dose: Not Given Docusate Sodium (Colace) 100 mg PO BID PRN PRN Reason: Constipation Enoxaparin Sodium (Lovenox) 70 mg SC Q12 [facility] PRN Reason: Protocol Last Admin: 05/19/18 10:26 Dose: 70 mg Insulin Human Lispro (Humalog) 0 units SC ACHS [facility] PRN Reason: Protocol Last Admin: 05/19/18 10:26 Dose: Not Given Metoprolol Tartrate (Lopressor) 25 mg PO Q8 [facility] Last Admin: 05/19/18 10:25 Dose: 25 mg Morphine Sulfate (Morphine) 2 mg IVP Q6 PRN PRN Reason: chest pain Nitroglycerin (Nitrostat Sl Tab) 0.4 mg SL Q5M PRN PRN Reason: chest pain Pantoprazole Sodium (Protonix Ec Tab) 40 mg PO DAILY [facility] Last Admin: 05/19/18 10:26 Dose: 40 mg Pregabalin (Lyrica) 75 mg PO BID [facility] Last Admin: 05/19/18 10:42 Dose: 75 mg - Labs Labs: 05/18/18 04:45 05/18/18 04:45 PT 11.4 Seconds (9.8-13.1) 05/17/18 16:28 INR 1.0 05/17/18 16:28 APTT 29.7 Seconds (25.6-37.1) 05/17/18 16:28 - Constitutional Appears: Well - Head Exam Head Exam: ATRAUMATIC, NORMAL INSPECTION, NORMOCEPHALIC - Eye Exam Eye Exam: EOMI, Normal appearance, PERRL Pupil Exam: NORMAL ACCOMODATION, PERRL - ENT Exam ENT Exam: Mucous Membranes Moist, Normal Exam - Neck Exam Neck Exam: Full ROM, Normal Inspection. absent: Lymphadenopathy - Respiratory Exam Respiratory Exam: Clear to Ausculation Bilateral, NORMAL BREATHING PATTERN - Cardiovascular Exam Cardiovascular Exam: REGULAR RHYTHM, +S1, +S2, Murmur - GI/Abdominal Exam GI & Abdominal Exam: Soft, Normal Bowel Sounds. absent: Bruit, Distended, Firm , Guarding, Rigid, Tenderness, Diminished Bowel Sounds, Hernia, Hyperactive Bowel Sounds, Hypoactive Bowel Sounds, Organomegaly, Pulsatile Mass, Rebound, Mass - Rectal Exam Rectal Exam: Deferred - Extremities Exam Extremities Exam: Full ROM, Normal Capillary Refill, Normal Inspection. absent : Joint Swelling, Pedal Edema - Back Exam Back Exam: NORMAL INSPECTION - Neurological Exam Neurological Exam: Alert, Awake, CN II-XII Intact, Normal Gait, Oriented x3 - Psychiatric Exam Psychiatric exam: Normal Affect, Normal Mood - Skin Skin Exam: Dry, Intact, Normal Color, Warm Assessment and Plan (1) Diabetes mellitus Status: Acute (2) Dyslipidemia Status: Acute (3) HTN (hypertension) Status: Acute (4) NSTEMI (non-ST elevated myocardial infarction) Status: Acute - Assessment and Plan (Free Text) Plan: 99 % proximal D1 lesion. for pci tomorrow.
[2018-05-20 06:05] LABS: HEMOGLOBIN 12.7 g/dL (12.0-16.0); MEAN CELL VOLUME 83.3 fl (81.0-99.0); MEAN CORPUSCULAR HEMOGLOBIN 28.4 pg (27.0-31.0); MEAN CORPUSCULAR HGB CONC 34.1 g/dL (33.0-37.0); RBC 4.46 Mil/uL (3.80-5.20); RED CELL DISTRIBUTION WIDTH 14.1 % (11.5-14.5); WHITE BLOOD COUNT 8.6 K/uL (4.8-10.8)
[2018-05-20 06:53] LABS: BLOOD UREA NITROGEN 18 mg/dl (7-17); CALCIUM 9.1 mg/dL (8.4-10.2); GFR NON-AFRICAN AMERICAN 53
--- NOTE | 2018-05-20 07:44 | CP.PCM.PN ---
Subjective - Date & Time of Evaluation Date of Evaluation: 05/20/18 Time of Evaluation: 08:00 - Subjective Subjective: Cyra: [id number] Pt seen at bedside this morning accompanied by daughter, hard of hearing. Pt states she is feeling well, slept well and denies any chest pain overnight. Pt is still having constipation last bowel movement was Thursday, no urinary symptoms. Patient had a cardiac cath done yesterday at [facility] which showed 99% proximal D1 lesion, for PCI today at [facility]. Denies any SOB , palpations, nausea, vomiting, or dysuria. Pt NPO for procedure. Hx: HTN, DM, HLD, Vitiligo, [place] 2015 Surg Hx: Left knee Objective - Vital Signs/Intake and Output Vital Signs (last 24 hours): Temp Pulse Resp BP Pulse Ox 98.7 F 68 18 169/73 H 97 05/20/18 05:19 05/20/18 05:19 05/20/18 05:19 05/20/18 05:19 05/20/18 05:19 - Medications Medications: Current Medications Aspirin (Aspirin) 325 mg PO DAILY [facility] Last Admin: 05/19/18 10:28 Dose: 325 mg Atorvastatin Calcium (Lipitor) 40 mg PO HS [facility] Last Admin: 05/19/18 22:11 Dose: 40 mg Clopidogrel Bisulfate (Plavix) 75 mg PO DAILY [facility] Last Admin: 05/18/18 10:15 Dose: Not Given Docusate Sodium (Colace) 100 mg PO BID PRN PRN Reason: Constipation Enoxaparin Sodium (Lovenox) 70 mg SC Q12 [facility] PRN Reason: Protocol Last Admin: 05/19/18 22:10 Dose: 70 mg Insulin Human Lispro (Humalog) 0 units SC ACHS [facility] PRN Reason: Protocol Last Admin: 05/19/18 22:15 Dose: Not Given Metoprolol Tartrate (Lopressor) 25 mg PO Q8 [facility] Last Admin: 05/20/18 00:55 Dose: 25 mg Morphine Sulfate (Morphine) 2 mg IVP Q6 PRN PRN Reason: chest pain Nitroglycerin (Nitrostat Sl Tab) 0.4 mg SL Q5M PRN PRN Reason: chest pain Pantoprazole Sodium (Protonix Ec Tab) 40 mg PO DAILY [facility] Last Admin: 05/19/18 10:26 Dose: 40 mg Pregabalin (Lyrica) 75 mg PO BID [facility] Last Admin: 05/19/18 10:42 Dose: 75 mg - Labs Labs: 05/20/18 04:45 05/20/18 04:45 PT 11.4 Seconds (9.8-13.1) 05/17/18 16:28 INR 1.0 05/17/18 16:28 APTT 29.7 Seconds (25.6-37.1) 05/17/18 16:28 - Constitutional Appears: Well, Non-toxic, No Acute Distress - Head Exam Head Exam: ATRAUMATIC, NORMAL INSPECTION, NORMOCEPHALIC Additional comments: Vitiligo across [place] - Eye Exam Eye Exam: EOMI, Normal appearance, PERRL - ENT Exam ENT Exam: Mucous Membranes Moist - Respiratory Exam Respiratory Exam: Clear to Ausculation Bilateral, NORMAL BREATHING PATTERN - Cardiovascular Exam Cardiovascular Exam: RRR, +S1, +S2 - GI/Abdominal Exam GI & Abdominal Exam: Normal Bowel Sounds - Extremities Exam Extremities Exam: Normal Inspection - Neurological Exam Neurological Exam: Alert, Awake, Oriented x3 Assessment and Plan (1) NSTEMI (non-ST elevated myocardial infarction) Assessment & Plan: -S/p cardiac cath yest- showed 99% proximal lesion of D1, scheduled for PCI today at [facility] [place] -Echo- normal L syst fxn EF 60-65% with abnml relaxation, small ASD -Active EKG ischemic changes- t wave flattening, inversion -Lovenox 70mg Q12 -HR 93- Lopressor 25mg Q8 Status: Acute (2) HTN (hypertension) Assessment & Plan: -BP 165/79, HR 93- continue Lopressor 25mg Q8 Status: Acute (3) Diabetes mellitus Assessment & Plan: -Accucheck QHS-136, Glucose 148, HgA1c 10.6 -Diabetic diet -Continue Lispro ACHS as needed -Continue to monitor BMP Status: Acute (4) Dyslipidemia Assessment & Plan: - Atorvastatin 40mg PO daily Status: Acute (5) DVT prophylaxis Assessment & Plan: - Therapeutic Lovenox Status: Acute
[2018-05-20] MEDS: Insulin Lispro (humaLOG) 100 Units/ml Inj SC SCH ×2 (08:13→21:50)
[2018-05-20] MEDS: Pantoprazole 40 mg EC Tab PO SCH (08:21)
[2018-05-20] MEDS: Enoxaparin 80 mg Syringe SC SCH ×2 (08:57→21:52)
[2018-05-21] MEDS: Insulin Lispro (humaLOG) 100 Units/ml Inj SC SCH ×2 (06:47→12:58)
[2018-05-21 08:38] VITALS: O2SAT 93
[2018-05-21] MEDS ORDERED: INSULIN GLARGINE HUM REC ANLOG 40 UNIT SC SCH (09:00)
[2018-05-21] MEDS: Enoxaparin 80 mg Syringe SC SCH (09:29)
[2018-05-21] MEDS: Pantoprazole 40 mg EC Tab PO SCH (09:30)
--- NOTE | 2018-05-21 10:28 | CP.PCM.PN ---
Subjective - Date & Time of Evaluation Date of Evaluation: 05/21/18 Time of Evaluation: 09:00 - Subjective Subjective: Cyra: [id number] Patient seen at bedside this morning, states that she is in pain, she had a PCI procedure done at [facility] yesterday. Patient has a large hematoma located at the right femoral entry point, bandage clean, dry and intact. Left femoral entry point bandage clean, dry, intact, no hematoma noted. The patient also states she has right arm pain after the saline IV infiltrated and venipuncture was unsuccessful, a notable hematoma lump is formed in the antecubital fossa. Patient denies chest pain, SOB, nausea, vomitting, diarrhea or constipation. Objective - Vital Signs/Intake and Output Vital Signs (last 24 hours): Temp Pulse Resp BP Pulse Ox 98.7 F 93 H 18 146/76 93 L 05/21/18 08:37 05/21/18 09:28 05/21/18 08:37 05/21/18 09:28 05/21/18 08:37 - Medications Medications: Current Medications Acetaminophen (Tylenol 325mg Tab) 650 mg PO Q6 PRN PRN Reason: Pain, Mild (1-3) Last Admin: 05/21/18 10:25 Dose: 650 mg Aspirin (Aspirin) 325 mg PO DAILY [facility] Last Admin: 05/21/18 09:35 Dose: 325 mg Atorvastatin Calcium (Lipitor) 80 mg PO HS [facility] Last Admin: 05/20/18 21:51 Dose: 80 mg Clopidogrel Bisulfate (Plavix) 75 mg PO DAILY [facility] Last Admin: 05/21/18 09:30 Dose: 75 mg Docusate Sodium (Colace) 100 mg PO BID PRN PRN Reason: Constipation Enalapril Maleate (Vasotec) 5 mg PO DAILY [facility] Last Admin: 05/21/18 09:35 Dose: 5 mg Enoxaparin Sodium (Lovenox) 70 mg SC Q12 [place] PRN Reason: Protocol Last Admin: 05/21/18 09:29 Dose: 70 mg Home Med (Insulin Glargine,Hum.Rec.Maloulog [Libby Hunter]) 40 unit SC DAILY [facility] Insulin Human Lispro (Humalog) 0 units SC ACHS [facility] PRN Reason: Protocol Last Admin: 05/21/18 06:47 Dose: 1 unit Metoprolol Tartrate (Lopressor) 25 mg PO Q8 [facility] Last Admin: 05/21/18 09:28 Dose: 25 mg Morphine Sulfate (Morphine) 2 mg IVP Q6 PRN PRN Reason: chest pain Nitroglycerin (Nitrostat Sl Tab) 0.4 mg SL Q5M PRN PRN Reason: chest pain Pantoprazole Sodium (Protonix Ec Tab) 40 mg PO DAILY [facility] Last Admin: 05/21/18 09:30 Dose: 40 mg Pregabalin (Lyrica) 75 mg PO BID [facility] Last Admin: 05/21/18 10:25 Dose: 75 mg - Labs Labs: 05/20/18 04:45 05/20/18 04:45 PT 11.4 Seconds (9.8-13.1) 05/17/18 16:28 INR 1.0 05/17/18 16:28 APTT 29.7 Seconds (25.6-37.1) 05/17/18 16:28 - Constitutional Appears: Well, Non-toxic, No Acute Distress - Head Exam Head Exam: ATRAUMATIC, NORMAL INSPECTION, NORMOCEPHALIC - Eye Exam Eye Exam: EOMI, Normal appearance, PERRL - ENT Exam ENT Exam: Mucous Membranes Moist - Neck Exam Neck Exam: Full ROM - Respiratory Exam Respiratory Exam: Clear to Ausculation Bilateral, NORMAL BREATHING PATTERN - Cardiovascular Exam Cardiovascular Exam: RRR, +S1, +S2 - GI/Abdominal Exam GI & Abdominal Exam: Soft, Normal Bowel Sounds - Extremities Exam Additional comments: R antecubital fossa- visible hematoma lump noted, R femoral entry point- large bruise like hematoma- bandage clean, dry and intat, L femoral entry point- no hematoma noted, bandage clean, dry and intact. Assessment and Plan (1) NSTEMI (non-ST elevated myocardial infarction) Assessment & Plan: -S/p Cardiac PCI intervention at [facility] after cath done at [facility], [place] showed 99% proximal lesion of D1 -Patient has R arm and R femoral hematoma- Continue to monitor patient symptoms and CBC for signs of uncontrolled bleeding -Continue Lovenox 70mg Q12, Lopressor 25mg Q8, Atorvastatin 80mg QHS, ASA 325 Daily, Enalapril 5mg Daily -Echo- normal L syst fxn EF 60-65% with abnml relaxation, small ASD, Abnormal EKG -PT eval today possible D/C Status: Acute (2) HTN (hypertension) Assessment & Plan: -BP 161/71 this AM , HR 93 -Started Enalapril 5mg QD -Continue Lopressor 25mg Q8 Status: Acute (3) Diabetes mellitus Assessment & Plan: -Accucheck QHS-182, Glucose 148, HgA1c 10.6 -Diabetic diet -Continue Lispro ACHS, Started back on Glargine 40units SC -Continue to monitor BMP Status: Acute (4) Dyslipidemia Assessment & Plan: -Atorvastatin 80mg PO QHS Status: Acute (5) DVT prophylaxis Assessment & Plan: -Therapeutic Lovenox Status: Acute
--- NOTE | 2018-05-21 12:19 | CP.PCM.DIS ---
Provider - Provider Date of Admission: 05/17/18 17:50 Attending physician: Roberto Lockwood MD Consults: Dr. Maya- Interventional Cardiology Time Spent in preparation of Discharge (in minutes): 15 Diagnosis - Discharge Diagnosis (1) NSTEMI (non-ST elevated myocardial infarction) Status: Acute Comment: -S/p Cardiac PCI intervention at [facility] after cath done at [facility] [place] showed 99% proximal lesion of D1. -Patient has R arm and R femoral hematoma- Continue to monitor patient symptoms and CBC for signs of uncontrolled bleeding. - Continue Lovenox 70mg Q12, Lopressor 25mg Q8, Atorvastatin 80mg QHS, ASA 325 Daily, Enalapril 5mg Daily. -Echo- normal L syst fxn EF 60-65% with abnml relaxation, small ASD, Abnormal EKG. -PT evaluated patient today ok to D/C (2) HTN (hypertension) Status: Acute Comment: -Started Enalapril 5mg QD. -Continue Lopressor 25mg Q8 (3) Diabetes mellitus Status: Acute Comment: -Diabetic diet. -Continue Lispro ACHS, Started back on Glargine 40units SC (4) Dyslipidemia Status: Acute Comment: -Atorvastatin 80mg PO QHS Hospital Course - Lab Results Lab Results: Most Recent Lab Values WBC 8.6 K/uL (4.8-10.8) 05/20/18 04:45 RBC 4.46 Mil/uL (3.80-5.20) 05/20/18 04:45 Hgb 12.7 g/dL (12.0-16.0) 05/20/18 04:45 Hct 37.1 % (34.0-47.0) 05/20/18 04:45 MCV 83.3 fl (81.0-99.0) 05/20/18 04:45 MCH 28.4 pg (27.0-31.0) 05/20/18 04:45 MCHC 34.1 g/dL (33.0-37.0) 05/20/18 04:45 RDW 14.1 % (11.5-14.5) 05/20/18 04:45 Plt Count 213 K/uL (130-400) 05/20/18 04:45 MPV 9.7 fl (7.2-11.7) 05/18/18 04:45 Neut % (Auto) 60.2 % (50.0-75.0) 05/18/18 04:45 Lymph % (Auto) 31.5 % (20.0-40.0) 05/18/18 04:45 Gaines % (Auto) 5.7 % (0.0-10.0) 05/18/18 04:45 Eos % (Auto) 1.8 % (0.0-4.0) 05/18/18 04:45 Baso % (Auto) 0.8 % (0.0-2.0) 05/18/18 04:45 Neut # (Auto) 5.9 K/uL (1.8-7.0) 05/18/18 04:45 Lymph # (Auto) 3.1 K/uL (1.0-4.3) 05/18/18 04:45 Gaines # (Auto) 0.6 K/uL (0.0-0.8) 05/18/18 04:45 Eos # (Auto) 0.2 K/uL (0.0-0.7) 05/18/18 04:45 Baso # (Auto) 0.1 K/uL (0.0-0.2) 05/18/18 04:45 PT 11.4 Seconds (9.8-13.1) 05/17/18 16:28 INR 1.0 05/17/18 16:28 APTT 29.7 Seconds (25.6-37.1) 05/17/18 16:28 Sodium 136 mmol/l (132-148) 05/20/18 04:45 Potassium 3.9 MMOL/L (3.6-5.0) 05/20/18 04:45 Chloride 107 mmol/L (98-107) 05/20/18 04:45 Carbon Dioxide 21 mmol/L (22-30) L 05/20/18 04:45 Anion Gap 12 (10-20) 05/20/18 04:45 BUN 18 mg/dl (7-17) H 05/20/18 04:45 Creatinine 1.0 mg/dl (0.7-1.2) 05/20/18 04:45 Est GFR ( Amer) > 60 05/20/18 04:45 Est GFR (Non-Af Amer) 53 05/20/18 04:45 POC Glucose (mg/dL) 193 mg/dL (65-110) H 05/21/18 11:50 Random Glucose 148 mg/dL (65-105) H 05/20/18 04:45 Hemoglobin A1c 10.6 % (4.2-6.5) H 05/18/18 04:45 Calcium 9.1 mg/dL (8.4-10.2) 05/20/18 04:45 Total Bilirubin 0.4 mg/dl (0.2-1.3) 05/17/18 16:28 AST 62 U/L (14-36) H 05/17/18 16:28 ALT 40 U/L (9-52) 05/17/18 16:28 Alkaline Phosphatase 74 U/L (38-126) 05/17/18 16:28 Troponin I 9.6500 ng/mL (0.00-0.120) H* 05/18/18 10:07 NT-Pro-B Natriuret Pep 2070 pg/ml (0-900) H 05/17/18 16:28 Total Protein 7.4 G/DL (6.3-8.2) 05/17/18 16:28 Albumin 4.2 g/dL (3.5-5.0) 05/17/18 16:28 Globulin 3.2 gm/dL (2.2-3.9) 05/17/18 16:28 Albumin/Globulin Ratio 1.3 (1.0-2.1) 05/17/18 16:28 Triglycerides 145 mg/DL (0-149) 05/18/18 04:45 Cholesterol 120 mg/dL (0-199) 05/18/18 04:45 LDL Cholesterol Direct 61 mg/dL (0-129) 05/18/18 04:45 HDL Cholesterol 25 MG/DL (30-70) L 05/18/18 04:45 Lipase 63 U/L (23-300) 05/17/18 16:28 TSH 3rd Generation 4.39 mIU/ML (0.46-4.68) 05/18/18 04:45 - Hospital Course Hospital Course: Pt is a 78 yo F brought in by her family on 05/17 due to left sided chest pain which started in her back then radiated to her left chest after she ate a meal at 6pm. Patient stated she had similar episode before one on Thursday of which she also had nausea, vomiting and diarrhea the episode resolved on its own and another episode 3 months prior. Patient was hospitalized 3 years ago in the [place] and was told she experienced a minor heart attack however no intervention was performed at that time. EKG was done which showed abnormal acute changes- ischemic signs, t wave inversion. Serial troponin trend 4.62, 12 , 9.65, Pro-BNP 2070, Echo-(60-65% normal L systolic fxn, abnml relaxation small ASD), Interventional cardiology Dr. Maya was consulted performed a cath at [facility], [place] which showed 99% proximal D1 lesion. Patient went to [facility] for PCI yesterday, this morning patient had a hematoma located at the right femoral entry point, bandage clean, dry and intact. Left femoral entry point bandage clean, dry, intact, no hematoma noted. Patient denies chest pain, SOB, nausea, vomiting, diarrhea or constipation. Hx: HTN, DM2, HLD, Vitiligo, [place]- 2014, hearing impairment Surg Hx: Left knee - Date & Time of H&P Date of H&P: 05/17/18 Time of H&P: 18:46 Discharge Exam - Head Exam Head Exam: ATRAUMATIC, NORMAL INSPECTION, NORMOCEPHALIC Additional comments: Vitiligo across forehead and shoulders - Eye Exam Eye Exam: EOMI, Normal appearance, PERRL - ENT Exam ENT Exam: Mucous Membranes Moist - Neck Exam Neck exam: Full Rom - Respiratory Exam Respiratory Exam: Clear to PA & Lateral, NORMAL BREATHING PATTERN, UNREMARKABLE - Cardiovascular Exam Cardiovascular Exam: RRR, +S1, +S2 - GI/Abdominal Exam GI & Abdominal Exam: Normal Bowel Sounds - Extremities Exam Additional comments: R femoral entry point- large bruise like hematoma- bandage clean, dry and intat , L femoral entry point- no hematoma noted, bandage clean, dry and intact. - Skin Additional comments: Vitiligo across forehead/shoulders Discharge Plan - Discharge Medications Prescriptions: Aspirin [Ecotrin] 81 mg PO DAILY #30 tabec Atorvastatin [Lipitor] 80 mg PO HS #30 tab Clopidogrel [Plavix] 75 mg PO DAILY #30 tab Enalapril Maleate [Vasotec] 5 mg PO DAILY #30 tab Metoprolol Tartrate [Lopressor] 25 mg PO Q8 #90 tab - Follow Up Plan Condition: STABLE Disposition: HOME/ ROUTINE Patient education suggested?: Yes Instructions: Diabetes Exchange Diet, High Blood Pressure (DC), Carbohydrate Counting Diet, Heart Attack (DC), Diabetes Diet , Chest Pain (DC), Diabetes Type 2 (DC), Diabetic Meal Planning Additional Instructions: follow up with in 1 week follow up with dr ramirez in 1 week Referrals: [facility] [Outside] Tara Maya MD [Staff Provider] - Mariusz Ramirez MD [Staff Provider] -
[2018-05-21 13:25] VITALS: BP 131/69; PULSE 78; RESP 20; TEMP 97.7
== END 2018-05-21 14:45 | disposition home or self-care (01) | DRG 122 ==
LOC: H.ER 15:42 → H.ERHOLD 17:50 → H.TEL 21:40
PROC: 3E0234Z Introduction of Serum, Toxoid and Vaccine into Muscle, Percutaneous Approach (ICD-10-PCS; 2018-05-18)
PROC: 4A023N7 Measurement of Cardiac Sampling and Pressure, Left Heart, Percutaneous Approach (ICD-10-PCS; principal; 2018-05-19)
PROC: B206YZZ Plain Radiography of Right and Left Heart using Other Contrast (ICD-10-PCS; 2018-05-19)
DX: I21.4 Non-ST elevation (NSTEMI) myocardial infarction (principal); I10 Essential (primary) hypertension; E78.00 Pure hypercholesterolemia, unspecified; E78.5 Hyperlipidemia, unspecified; E11.9 Type 2 diabetes mellitus without complications; L80 Vitiligo; Q21.1 Atrial septal defect; K59.00 Constipation, unspecified; M19.90 Unspecified osteoarthritis, unspecified site; Z23 Encounter for immunization; Z79.82 Long term (current) use of aspirin; Z79.899 Other long term (current) drug therapy

== ENCOUNTER 2018-05-26 15:26 | Emergency (ER) | payer SELFPAY ==
[2018-05-26 15:26] VITALS: BMI 29.2
[2018-05-26 15:38] VITALS: BP 156/81; PULSE 101; RESP 20; TEMP 98.4; O2SAT 96
--- NOTE | 2018-05-26 16:32 | ED PDOC ---
HPI: Male Pain Time Seen by Provider: 05/26/18 15:43 Chief Complaint (Nursing): Groin Pain Chief Complaint (Provider): Right groin swelling History Per: Patient History/Exam Limitations: no limitations Onset/Duration Of Symptoms: Days (May 19) Current Symptoms Are (Timing): Still Present Associated Symptoms: denies: Chest Pain Past Medical History Vital Signs: Last Vital Signs Temp 98.4 F 05/26/18 15:34 Pulse 101 H 05/26/18 15:34 Resp 20 05/26/18 15:34 BP 156/81 H 05/26/18 15:34 Pulse Ox 96 05/26/18 15:34 - Medical History PMH: Diabetes, HTN, Hypercholesterolemia Denies: Chronic Kidney Disease - Surgical History Surgical History: Cholecystectomy - Family History Family History: States: Unknown Family Hx - Home Medications Home Medications: Ambulatory Orders Medication Instructions Recorded Insulin Glargine,Hum.rec.anlog 40 unit SC DAILY 05/17/18 [Toujeo Solostar] Insulin Glulisine [Apidra] 10 unit SC DAILY PRN 05/17/18 Lercanidipine Hydrochloride 20 mg PO DAILY 05/17/18 Pregabalin [Lyrica] 75 mg PO Q12 05/17/18 Aspirin [Ecotrin] 81 mg PO DAILY #30 tabec 05/21/18 Atorvastatin [Lipitor] 80 mg PO HS #30 tab 05/21/18 Clopidogrel [Plavix] 75 mg PO DAILY #30 tab 05/21/18 Enalapril Maleate [Vasotec] 5 mg PO DAILY #30 tab 05/21/18 Metoprolol Tartrate [Lopressor] 25 mg PO Q8 #90 tab 05/21/18 - Allergies Allergies/Adverse Reactions: Allergies Allergy/AdvReac Type Severity Reaction Status Date / Time No Known Allergies Allergy Verified 05/26/18 15:33 - ECG O2 Sat by Pulse Oximetry: 96 Disposition - Disposition
--- NOTE | 2018-05-26 16:38 | ED PDOC ---
HPI: Female Pain Time Seen by Provider: 05/26/18 15:43 Chief Complaint (Nursing): Groin Pain Chief Complaint (Provider): Right groin swelling History Per: Patient History/Exam Limitations: no limitations Onset/Duration Of Symptoms: Days (May 19) Current Symptoms Are (Timing): Still Present Associated Symptoms: denies: Chest Pain Additional Complaint(s): Magalis Salazar is a 78 year old female, with a past medical history of HTN, hypercholesterolemia, diabetes and x2 catheters, who presents to the emergency department for right groin swelling. Patient is s/p cardiac catheter on the , performed at [facility], and catheter with PCI on the , performed at [facility]. She went to see her PMD today for check up and reevaluation. There was concern for persistent large swelling and hematoma to right groin and was sent here for further evaluation. Patient reports pain but feels like it's getting better since procedure. She denies any trauma, chest pain, shortness of breath, leg swelling, numbness or weakness in distal legs. No further medical complaints. PMD: Clinic. Past Medical History Reviewed: Historical Data, Nursing Documentation, Vital Signs Vital Signs: Last Vital Signs Temp 98.4 F 05/26/18 15:34 Pulse 101 H 05/26/18 15:34 Resp 20 05/26/18 15:34 BP 156/81 H 05/26/18 15:34 Pulse Ox 96 05/26/18 15:34 - Medical History PMH: Diabetes, HTN, Hypercholesterolemia Denies: Chronic Kidney Disease - Surgical History Surgical History: Cholecystectomy Other surgeries: x2 catheters - Family History Family History: States: Unknown Family Hx - Home Medications Home Medications: Ambulatory Orders Medication Instructions Recorded Insulin Glargine,Hum.rec.anlog 40 unit SC DAILY 05/17/18 [Toujeo Solostar] Insulin Glulisine [Apidra] 10 unit SC DAILY PRN 05/17/18 Lercanidipine Hydrochloride 20 mg PO DAILY 05/17/18 Pregabalin [Lyrica] 75 mg PO Q12 05/17/18 Aspirin [Ecotrin] 81 mg PO DAILY #30 tabec 05/21/18 Atorvastatin [Lipitor] 80 mg PO HS #30 tab 05/21/18 Clopidogrel [Plavix] 75 mg PO DAILY #30 tab 05/21/18 Enalapril Maleate [Vasotec] 5 mg PO DAILY #30 tab 05/21/18 Metoprolol Tartrate [Lopressor] 25 mg PO Q8 #90 tab 05/21/18 - Allergies Allergies/Adverse Reactions: Allergies Allergy/AdvReac Type Severity Reaction Status Date / Time No Known Allergies Allergy Verified 05/26/18 15:33 Review of Systems ROS Statement: Except As Marked, All Systems Reviewed And Found Negative Cardiovascular: Negative for: Chest Pain, Edema Respiratory: Negative for: Shortness of Breath Genitourinary Female: Positive for: Other (right groin swelling) Neurological: Negative for: Weakness, Numbness (distal legs) Physical Exam - Reviewed Nursing Documentation Reviewed: Yes Vital Signs Reviewed: Yes - Physical Exam Appears: Positive for: Well, No Acute Distress Head Exam: Positive for: ATRAUMATIC, NORMAL INSPECTION, NORMOCEPHALIC Skin: Positive for: Normal Color, Warm, Dry Eye Exam: Positive for: Normal appearance, EOMI, PERRL Neck: Positive for: Painless ROM Cardiovascular/Chest: Positive for: Edema (Trace pedal edema bilaterally. Strong pedal pulses), Tachycardia (with regular rhythm) Respiratory: Positive for: Normal Breath Sounds. Negative for: Respiratory Distress Gastrointestinal/Abdominal: Positive for: Normal Exam, Soft, Other (Lower abdomen has areas of ecchymosis consistent with subcutaneous injection. ). Negative for: Tenderness Pelvic Exam: Positive for: Other (Large bilateral groin hematoma with induration , right side greater than left side with minimal tenderness to palpation at sites but no erythema and no bruits) Extremity: Positive for: Normal ROM (upper and lower extremities). Negative for : Deformity Neurologic/Psych: Positive for: Alert, Oriented - ECG O2 Sat by Pulse Oximetry: 96 (RA) Pulse Ox Interpretation: Normal Medical Decision Making Medical Decision Making: Time: 15:43 Initial Impression: Groin hematoma r/o aneurysm Initial Plan: --Duplex Lower Extremity Artr Right [US] --Duplex Lower Extremity Vein Right [US] --Reevaluation Accession No. : [id number] Patient Name / ID : CINDI DUDLEY / [id number] Exam Date : 05/26/2018 16:22:52 ( Approved ) Study Comment : Sex / Age : F / 78Y Creator : Vicente Douglas MD Dictator : Vicente Douglas MD Training And Development Assistant : Instructional Systems Specialist : Vicente Douglas MD Approver2 : Report Date : 05/26/2018 17:50:18 My Comment : Date of service: 05/26/2018 PROCEDURE: Duplex ultrasound of the right lower extremity arteries. HISTORY: Right lower extremity swelling status post catheterization COMPARISON: None available. TECHNIQUE: Grayscale and duplex Doppler evaluation of the right common femoral, superficial femoral, popliteal, posterior tibial and dorsalis pedis arteries was performed. FINDINGS: RIGHT LOWER EXTREMITY: RIGHT COMMON FEMORAL ARTERY: Widely patent. Maximal flow velocity of 136.5 cm/s. RIGHT SUPERFICIAL FEMORAL ARTERY: * Proximal: Widely patent. Maximal flow velocity of 103.5 cm/s. * Mid: Widely patent. Maximal flow velocity of 119.3 cm/s. * Distal: Widely patent. Maximal flow velocity of 115.4 cm/s. RIGHT POPLITEAL ARTERY: Widely patent. Maximal flow velocity of 89.6 cm/s. RIGHT ANTERIOR TIBIAL ARTERY: Widely patent. Maximal flow velocity of 53.0 cm/ s. RIGHT POSTERIOR TIBIAL ARTERY: Widely patent. Maximal flow velocity of 21.1 cm/ s. Monophasic flow. RIGHT DORSALIS PEDIS ARTERY: Widely patent. Maximal flow velocity of 61.5 cm/s. OTHER FINDINGS: None. IMPRESSION: No evidence of pseudoaneurysm. Loss of triphasic waveform and low velocities in the posterior tibial artery. The remainder of the examination is within normal limits. 1800 On reevaluation pt stable and eager to be discharged. Advised to continue caution with walking and excessive movement. Tylenol recommended for pain. Stable for dc with outpatient followup at clinic. ----- Scribe Attestation: Documented by Bruno Resendiz, acting as a scribe for Demetra Almonte MD. Provider Scribe Attestation: All medical record entries made by the Scribe were at my direction and personally dictated by me. I have reviewed the chart and agree that the record accurately reflects my personal performance of the history, physical exam, medical decision making, and the department course for this patient. I have also personally directed, reviewed, and agree with the discharge instructions and disposition. Disposition - Clinical Impression Clinical Impression: Hematoma Counseled Patient/Family Regarding: Diagnosis, Need For Followup - Disposition Referrals: [facility] [Outside] - 05/28/18 Disposition: Routine/Home Disposition Time: 17:52 Condition: STABLE Instructions: Cardiac Catheterization, Contusion (DC) Print Language: ALGERIAN
--- NOTE | 2018-05-26 17:18 | US ---
Date of service: 05/26/2018 PROCEDURE: Right lower extremity venous duplex Doppler. HISTORY: swelling groin femoral s/p cath r/o aneurysm COMPARISON: None available. TECHNIQUE: Common femoral, superficial femoral, popliteal and posterior tibial veins were evaluated. Flow was assessed with color Doppler, compressibility, assessment of phasic flow and augmentation response. FINDINGS: COMMON FEMORAL VEIN: Unremarkable. SUPERFICIAL FEMORAL VEIN: Unremarkable. POPLITEAL VEIN: Unremarkable. POSTERIOR TIBIAL VEIN: Unremarkable. OTHER FINDINGS: None. IMPRESSION: No evidence of deep venous thrombosis in the right lower extremity.
--- NOTE | 2018-05-26 17:51 | US ---
Date of service: 05/26/2018 PROCEDURE: Duplex ultrasound of the right lower extremity arteries. HISTORY: Right lower extremity swelling status post catheterization COMPARISON: None available. TECHNIQUE: Grayscale and duplex Doppler evaluation of the right common femoral, superficial femoral, popliteal, posterior tibial and dorsalis pedis arteries was performed. FINDINGS: RIGHT LOWER EXTREMITY: RIGHT COMMON FEMORAL ARTERY: Widely patent. Maximal flow velocity of 136.5 cm/s. RIGHT SUPERFICIAL FEMORAL ARTERY: * Proximal: Widely patent. Maximal flow velocity of 103.5 cm/s. * Mid: Widely patent. Maximal flow velocity of 119.3 cm/s. * Distal: Widely patent. Maximal flow velocity of 115.4 cm/s. RIGHT POPLITEAL ARTERY: Widely patent. Maximal flow velocity of 89.6 cm/s. RIGHT ANTERIOR TIBIAL ARTERY: Widely patent. Maximal flow velocity of 53.0 cm/s. RIGHT POSTERIOR TIBIAL ARTERY: Widely patent. Maximal flow velocity of 21.1 cm/s. Monophasic flow. RIGHT DORSALIS PEDIS ARTERY: Widely patent. Maximal flow velocity of 61.5 cm/s. OTHER FINDINGS: None. IMPRESSION: No evidence of pseudoaneurysm. Loss of triphasic waveform and low velocities in the posterior tibial artery. The remainder of the examination is within normal limits.
== END 2018-05-26 18:09 | disposition home or self-care (01) ==
LOC: H.ER 15:26
DX: S30.1XXA Contusion of abdominal wall, initial encounter (principal); Y92.89 Other specified places as the place of occurrence of the external cause; E11.9 Type 2 diabetes mellitus without complications; E78.00 Pure hypercholesterolemia, unspecified; I10 Essential (primary) hypertension; Z79.4 Long term (current) use of insulin; Z79.82 Long term (current) use of aspirin